=== PATIENT | male | born 1985 | race Caucasian/White ===

== ENCOUNTER 2016-06-04 21:15 | Emergency (ER) | payer OTHER ==
[~2016-06-04] VITALS: Ht 177.8 cm; Wt 97.5 kg
[2016-06-04 21:40] VITALS: BP 127/77
== END 2016-06-05 01:28 | disposition left against medical advice (07) ==
LOC: ER 21:15
DX: Z53.21 Procedure and treatment not carried out due to patient leaving prior to being seen by health care provider (principal)
CPT/HCPCS: A4606; Z7610